=== PATIENT | male | born 1985 | race Caucasian/White ===

== ENCOUNTER 2017-08-03 19:09 | Emergency (ER) | payer OTHER ==
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
[2017-08-03 19:27] LABS: PLATELET COUNT 370 10^3/uL (150-400)
[2017-08-03] MEDS: NS 1,000 ML IV ONE ×4 (19:32→20:00)
[2017-08-03] MEDS ORDERED: LR 1,000 ML IV ONE ×2 (19:36→19:37)
[2017-08-03] MEDS ORDERED: HYDROmorphONE/DILAUDID 1 MG/ML INJ ONE ×3 (19:37→20:11)
[2017-08-03] MEDS ORDERED: HYDROmorphONE/DILAUDID 2 MG/ML INJ IVP ONE ×3 (19:38→20:13)
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
[2017-08-03 20:27] VITALS: BP 177/97
== END 2017-08-03 20:27 | disposition short-term general hospital (02) ==
DX: T24.231A Burn of second degree of right lower leg, initial encounter (principal); T24.232A Burn of second degree of left lower leg, initial encounter; T22.212A Burn of second degree of left forearm, initial encounter; T22.211A Burn of second degree of right forearm, initial encounter; T20.10XA Burn of first degree of head, face, and neck, unspecified site, initial encounter; T31.0 Burns involving less than 10% of body surface; F17.200 Nicotine dependence, unspecified, uncomplicated; X02.8XXA Other exposure to controlled fire in building or structure, initial encounter; Y92.69 Other specified industrial and construction area as the place of occurrence of the external cause; Y99.0 Civilian activity done for income or pay; Y93.89 Activity, other specified
CPT/HCPCS: 96374; J1170